=== PATIENT | female | born 1975 | race Caucasian/White ===

== ENCOUNTER 2017-03-14 11:41 | Emergency (ER) | payer OTHER ==
[~2017-03-14] VITALS: Ht 167.6 cm; Wt 59.0 kg
[2017-03-14 11:44] VITALS: BP 176/99; PULSE 118; RESP 16; TEMP 98.5; O2SAT 98
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
[2017-03-14] MEDS ORDERED: IBUP1TAB7 PO (14:19)
[2017-03-14] MEDS ORDERED: ROBA750T PO (14:20)
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
== END 2017-03-14 14:30 | disposition home or self-care (01) ==
LOC: PHEFT 11:41
DX: S20.212A Contusion of left front wall of thorax, initial encounter (principal); I10 Essential (primary) hypertension; V89.2XXA Person injured in unspecified motor-vehicle accident, traffic, initial encounter
CPT/HCPCS: 71045; 99283